=== PATIENT | male | born 1950 | race Caucasian/White ===

== ENCOUNTER 2017-11-28 11:12 | Outpatient (CLI) | payer OTHER ==
[~2017-11-28 11:12] MED LIST: ACTOS45 MG; ALTACE5 MG; ALTACE5 MG PO; CYMBALTA60 MG; GLYNASE6 MG; KOMBIGLYZE XR1 EAC1; LANTUS SOLOSTAR3 ML; LIPITOR40 MG; LYRICA150 MG; NOVOLOG100 U/ML; TRAMADOL HCL-AP1 TAB PO
== END 2017-11-28 11:28 | disposition home or self-care (01) ==
LOC: SONOGRAMA 11:12
DX: E04.8 Other specified nontoxic goiter (principal)